=== PATIENT | female | born 1945 | race Caucasian/White ===

== ENCOUNTER → 2016-05-29 | Outpatient (CLI) | payer BC ==
[~2016-05-29] MED LIST: ASCO500T16 PO; ASPI81TA28 PO; CALCIUM PO; DOXY100C2 PO; FOLI400T41 PO; METF-384 PO; MULT-506 PO; VIT D PO; VTMD PO
[2016-05-29 11:13] LABS: ESTIMATED AVERAGE GLUCOSE 114 mg/dl; HA1C FLAG Normal (Normal)
[2016-05-29 11:30] LABS: CHOLESTEROL/HDL RATIO 3.4; THYROID STIMULATING HORMONE 2.13 uIu/ml (0.300-4.500)
--- NOTE | 2016-06-06 09:46 | CODING QUERY MEDICAL NECESSITY ---
SUPPORTING DIAGNOSIS NEEDED A supporting diagnosis is required for the test/procedure performed on this patient in order for us to be reimbursed by the patient's insurance. Please provide a supporting diagnosis for the following test/procedure listed below next to the test name along with your signature. *If there is no additional diagnosis for this patient that would support the following test/procedure please document that below next to the test/procedure. Test(s)/Procedure(s) that require a supporting diagnosis: * GLYCATED HEMOGLOBIN DIAGNOSIS: * DOS: 05/29/16 Provider Signature: Date: Thank you Rima Grossman Health Information Management Once completed, please kindly fax back to [phone] For questions please call [phone]
== END | disposition home or self-care (01) ==
LOC: C.LAB1850 10:03
PROVIDERS: ATTEND Family Medicine
DX: E55.9 Vitamin D deficiency, unspecified (principal); E53.8 Deficiency of other specified B group vitamins; R94.6 Abnormal results of thyroid function studies; E78.00 Pure hypercholesterolemia, unspecified; R73.03 Prediabetes

== ENCOUNTER → 2016-08-08 | Outpatient (CLI) | payer BC ==
--- NOTE | 2016-08-09 15:02 | MAMMOGRAPHY REPORT ---
BILATERAL DIGITAL SCREENING MAMMOGRAM WITH CAD: 08/08/2016 CLINICAL HISTORY: Routine screening. Patient has no complaints. TECHNIQUE: Current study was also evaluated with a Computer Aided Detection (CAD) system. Bilatera l CC and MLO views were obtained. COMPARISON: Comparison is made to exams dated: 02/04/2014 mammogram, 08/18/2012 mammogram, 08/23/2010 mammogram, and 02/21/2009 mammogram - [facility]. BREAST COMPOSITION: The tissue of both breasts is heterogeneously dense, which may obscure small ma sses. FINDINGS: There is a 9 mm asymmetry seen within the right posterior breast on the cc view, possibl y projecting along the posterior nipple line on the MLO view, which may represent normal overlapping fibroglandular tissue although spot compression tomosynthesis views and possible breast ultrasound are recommended for further evaluation. The remainder of both breasts are stable compared to prior exams, without suspicious masses, calcifi cations, or areas of architectural distortion noted. Scattered bilateral benign-appearing calcifica tions are not significantly changed. Nodular asymmetry in the left superior posterior breast on the MLO view is stable compared to prior exams including the 2008 exam. IMPRESSION: ACR BI-RADS CATEGORY 0: INCOMPLETE EVALUATION: NEED ADDITIONAL IMAGING EVALUATION Right breast asymmetry, for which additional imaging evaluation is recommended. The patient will be called to schedule an appointment. Approximately 10% of breast cancers are not detected with mammography. A negative mammographic repor t should not delay biopsy if a clinically suggestive mass is present. Radha Camejo M.D. ah/:08/08/2016 16:49:35 Investigator Narcotics: Rosemarie CUELLAR(Bill)(M), [facility] letter sent: Addl Imaging 0 BI-RADS Code: ACR BI-RADS Category 0: Incomplete Evaluation: Need Additional Imaging Evaluation
== END | disposition home or self-care (01) ==
LOC: C.MAMM 13:58
PROVIDERS: ATTEND Obstetrics & Gynecology
DX: Z12.31 Encounter for screening mammogram for malignant neoplasm of breast (principal); N64.89 Other specified disorders of breast

== ENCOUNTER → 2016-08-21 | Outpatient (CLI) | payer BC ==
--- NOTE | 2016-08-21 15:11 | MAMMOGRAPHY REPORT ---
UNILATERAL RIGHT DIGITAL DIAGNOSTIC MAMMOGRAM TOMOSYNTHESIS AND TARGETED RIGHT ULTRASOUND: 08/21/2016 CLINICAL HISTORY: 71-year-old woman called back from screening mammography for a 9 mm asymmetry in t he posterior 6:00 versus lower inner aspect of the right breast. TECHNIQUE: Spot compression right CC and MLO tomosynthesis images were obtained. COMPARISON: Comparison is made to exams dated: 08/08/2016 mammogram, 02/04/2014 mammogram, 08/18/2012 mammogram, 08/23/2010 mammogram, 01/31/2010 mammogram, and 01/31/2010 ultrasound - [facility] [address]. BREAST COMPOSITION: The tissue of the right breast is heterogeneously dense, which may obscure smal l masses. FINDINGS: There is near complete effacement of the 9 mm nodular asymmetry in the slightly medial levar jin central posterior right breast on the CC view, and also effacement of the asymmetry in the sligh tly inferior posterior right breast on the MLO view. There is no evidence of a persistent mass or f ocal area of architectural distortion. No suspicious clustered microcalcifications are seen. Furth er evaluation with ultrasound was performed. Targeted ultrasound was performed in the 12:00 through 6:00 including medial and inferior right [address]. Normal fibroglandular tissue is seen without a discrete solid or cystic mass. IMPRESSION: ACR-BI-RADS CATEGORY 3: PROBABLY BENIGN, TARGETED ULTRASOUND ACR-BI-RADS CATEGORY 3: [place] OBABLY BENIGN There is effacement of the asymmetries in the posterior right breast with the supplemental tomosynth esis CC and MLO spot compression views, and no suspicious sonographic correlate. Although the asymm etry seen on the screening mammograms most likely represented normal overlapping fibroglandular tiss ue, a short interval follow-up diagnostic right mammogram and possible repeat ultrasound is recommen ded to ensure stability in 6 months. These results and recommendations were discussed with the patient at the time of the exam. Approximately 10% of breast cancers are not detected with mammography. A negative mammographic repor t should not delay biopsy if a clinically suggestive mass is present. Lurdes Bonner M.D. ay/:08/21/2016 12:51:36 Receiving Barn Custodian: Sharri CUELLAR(Bill)(M), [facility] letter sent: Follow Up Recommended 3 BI-RADS Code: ACR-BI-RADS Category 3: Probably Benign Ultrasound BI-RADS: ACR-BI-RADS Category 3: P robably Benign
== END | disposition home or self-care (01) ==
LOC: C.MAMM 10:26
PROVIDERS: ATTEND Obstetrics & Gynecology
DX: N64.89 Other specified disorders of breast (principal)

== ENCOUNTER → 2017-02-10 | Outpatient (CLI) | payer BC ==
[2017-02-10 10:54] LABS: ESTIMATED AVERAGE GLUCOSE 117 mg/dl; HA1C FLAG Normal (Normal)
[2017-02-10 11:20] LABS: ALB/GLOB RATIO 1.1 (0.9-2); ALT/SGPT 22 U/L (12-78); AST/SGOT 20 U/L (15-37); BLOOD UREA NITROGEN 25 mg/dl (7-18); BUN/CREATININE RATIO 31.6 (10-20); CALCIUM 9.2 mg/dl (8.5-10.1); CARBON DIOXIDE 30 mmol/L (21-32); CHLORIDE 102 mmol/L (98-107); CHOLESTEROL 178 mg/dl (0-200); GLUCOSE 85 mg/dl (70-99); POTASSIUM 3.7 mmol/L (3.5-5.1); SODIUM 141 mmol/L (136-145); TRIGLYCERIDES 79 mg/dl (0-150); VERY LOW DENSITY LIPOPROT CALC 16 mg/dl
[2017-02-10 11:30] LABS: ALKALINE PHOSPHATASE 48 U/L (45-117); CHOLESTEROL/HDL RATIO 3.2; HDL CHOLESTEROL 56 mg/dl; LDL CHOLESTEROL CALCULATED 106 mg/dl
== END | disposition home or self-care (01) ==
LOC: C.LAB1850 09:55
PROVIDERS: ATTEND Family Medicine
DX: E78.00 Pure hypercholesterolemia, unspecified (principal); R73.03 Prediabetes; M85.80 Other specified disorders of bone density and structure, unspecified site; I73.00 Raynaud's syndrome without gangrene; R94.6 Abnormal results of thyroid function studies

== ENCOUNTER → 2017-02-24 | Outpatient (CLI) | payer BC ==
--- NOTE | 2017-02-24 15:13 | MAMMOGRAPHY REPORT ---
UNILATERAL RIGHT DIGITAL DIAGNOSTIC MAMMOGRAM TOMOSYNTHESIS WITH CAD: 02/24/2017 CLINICAL HISTORY: 71-year-old woman presents for follow-up in the right breast for a probably benign asymmetry in the posterior aspect of the breast along the posterior nipple line. No suspicious sonog raphic correlate was identified at diagnostic ultrasound performed 08/21/2016. TECHNIQUE: Right breast tomosynthesis in addition to standard 2D mammography was performed. Current gene valdes was also evaluated with a Computer Aided Detection (CAD) system. COMPARISON: Comparison is made to exams dated: 08/21/2016 ultrasound, 08/21/2016 mammogram, 08/08/2016 mammogram, 02/04/2014 mammogram, 08/18/2012 mammogram, and 08/23/2010 mammogram - [facility]. BREAST COMPOSITION: The tissue of the right breast is heterogeneously dense, which may obscure small masses. FINDINGS: The asymmetry in the posterior right breast along the posterior nipple line on the CC view and possibly below the posterior nipple line on the MLO view is less prominent comparing to the 08/08 mammograms. Currently, there is no evidence of a suspicious mass, new area of architectural di stortion, asymmetry or suspicious microcalcifications. The right breast parenchymal pattern on the CC view appears very similar to the prior 2009 and 2008 mammograms, suggesting benignity. IMPRESSION: ACR BI-RADS CATEGORY 2: BENIGN The right breast posterior asymmetry is less prominent comparing to the 08/08/2016 mammograms, and th e current glandular pattern appears very similar to prior mammograms, suggesting the patient's baseli ne. There is no mammographic evidence of malignancy in the right breast. Recommend return to annual screening schedule, due in July 2017. These results and recommendations were discussed with the glenis ent at the time of the exam. Approximately 10% of breast cancers are not detected with mammography. A negative mammographic report should not delay biopsy if a clinically suggestive mass is present. Lurdes Bonner M.D. ay/:02/24/2017 12:11:28 Media Relations Intern: Aruna ALICEA)(Cande), [facility] letter sent: Normal 1/2 BI-RADS Code: ACR BI-RADS Category 2: Benign
== END | disposition home or self-care (01) ==
LOC: C.MAMM 11:07
PROVIDERS: ATTEND Obstetrics & Gynecology
DX: Z09 Encounter for follow-up examination after completed treatment for conditions other than malignant neoplasm (principal); N64.89 Other specified disorders of breast